=== PATIENT | female | born 1945 | race Caucasian/White ===

== ENCOUNTER 2021-11-11 12:47 | Emergency (ER) | payer BC ==
[~2021-11-11] VITALS: Ht 154.9 cm; Wt 59.0 kg
[2021-11-11 13:15] VITALS: BP_SYST 142
--- NOTE | 2021-11-11 13:15 | NUR ---
Placed in room 5 . Placed on hospital monitor, blood pressure machine and pulse oximeter. To gown for exam. Side rails up.
--- NOTE | 2021-11-11 13:20 | NUR ---
PT BIB DAUGHTER FROM [facility] FOR ABD PAIN RLQ X 1 WEEK, SHARP. PT STATES LAST BM WAS AT 0900 THIS AM AND "NORMAL". PT IS AMBULATORY, AAOX4, VSS
--- NOTE | 2021-11-11 13:45 | NUR ---
ER DR. BAILEY EXAMINING PT AT THE BEDSIDE
--- NOTE | 2021-11-11 13:55 | NUR ---
LAB AT THE BEDSIDE FOR BLOOD DRAW
[2021-11-11 14:25] LABS: BASOPHILS # (AUTO) 0.1 K/uL (0.0-0.2); BASOPHILS % (AUTO) 0.7 % (0.0-2.0); EOSINOPHILS % (AUTO) 0.1 % (0.0-4.0); HEMATOCRIT 38.5 % (36-48); LYMPHOCYTES # (AUTO) 0.9 K/uL (1.0-5.5); LYMPHOCYTES % (AUTO) 9.5 % (20.5-51.5); MEAN CORPUSCULAR VOLUME 105 fL (79.0-98.0); MONOCYTES # (AUTO) 0.4 K/uL (0.0-1.0); MONOCYTES % (AUTO) 4.1 % (1.7-9.3); NEUTROPHILS # (AUTO) 7.8 K/uL (1.8-7.7); NEUTROPHILS % (AUTO) 85.6 % (40.0-70.0); PLATELET COUNT (AUTO) 190 K/uL (130-430); RED BLOOD CELL COUNT(AUTO) 3.67 MIL/uL (4.2-6.2); RED CELL DISTRIBUTION WIDTH 13.1 % (9.0-15.0); WHITE BLOOD COUNT (AUTO) 9.1 K/uL (4.8-10.8)
[2021-11-11 15:03] LABS: ANION GAP 7 (5-15); CALCIUM 9.4 mg/dL (8.4-11.0); CHLORIDE 103 mmol/L (98-107); GLUCOSE 151 mg/dL (70-99); POTASSIUM 3.8 mmol/L (3.5-5.1)
[2021-11-11 15:04] LABS: ALANINE AMINOTRANSFERASE 18 U/L (12-78); ALBUMIN 3.8 g/dL (3.4-4.8); AMYLASE 44 U/L (0-100); ASPARTATE AMINOTRANSFERASE 26 U/L (10-37); C-REACTIVE PROTEIN QUANT < 0.2 mg/dL (0-0.5); CREATININE 0.87 mg/dL (0.55-1.30); LIPASE 300 U/L (73-393); TOTAL BILIRUBIN 0.8 mg/dL (0.0-1.0); UREA NITROGEN, BLOOD 13 mg/dL (8-21)
[2021-11-11] MEDS ORDERED: HYDR-3917 PO (16:03)
[2021-11-11] MEDS ORDERED: IBUP-1969 PO (16:07)
[2021-11-11 16:40] VITALS: BP_SYST 142
--- NOTE | 2021-11-11 16:42 | NUR ---
Patient given written and verbal discharge instructions and verbalizes understanding. ER MD discussed with patient the results and treatment provided. Patient in stable condition. ID arm band removed. Rx of NORCO AND IBUPROFEN given. Patient educated on pain management and to follow up with PMD. Pain Scale 0/10. Opportunity for questions provided and answered. Medication side effect fact sheet provided.
== END 2021-11-11 16:42 | disposition home or self-care (01) ==
LOC: SED 12:47
DX: R10.31 Right lower quadrant pain (principal)
CPT/HCPCS: 36415; 76376; 80053; 81002; 82150; 83605; 83690; 85025; 86140; 99284

== ENCOUNTER 2022-04-30 18:40 | Emergency (ER) | payer BC ==
[~2022-04-30] VITALS: Ht 162.6 cm; Wt 52.2 kg
[~2022-04-30 18:40] MED LIST: HYDR-3917 PO; IBUP-1969 PO
--- NOTE | 2022-04-30 19:33 | NUR ---
ER at bedside examining patient.
--- NOTE | 2022-04-30 19:46 | NUR ---
COVID AND FLU SAMPLE COLLECTED AND SENT TO LAB
--- NOTE | 2022-04-30 19:50 | NUR ---
Pt bib daughter from home, ambulated to bed 8. Pt A&Ox4, able to make needs known. Pt is a Pashto speaker, daughter at bedside to translate. Pt c/o cough x5 days. Daughter states pt took an at home covid test on and it came back negative. Pt states vomiting x 2days. Pt denies blood in vomit. Pt denies diarrhea. Pt states she has been taking Robutussin, DyQuil, and Nyquil for cough, last taken yesterday. Pt has a history of HTN, and Diabetes. Safety measures in place.
--- NOTE | 2022-04-30 20:00 | NUR ---
Patient given written and verbal discharge instructions and verbalizes understanding. ER Dr Wolfe discussed with patient the results and treatment provided. Patient in stable condition. ID arm band removed. Patient educated on pain management and to follow up with PMD. Opportunity for questions provided and answered. Medication side effect fact sheet provided.
[2022-04-30 20:07] LABS: BASOPHILS % (AUTO) 0.7 % (0.0-2.0); EOSINOPHILS # (AUTO) 0.1 K/uL (0.0-0.4); EOSINOPHILS % (AUTO) 1.3 % (0.0-4.0); HEMATOCRIT 38.4 % (36-48); HEMOGLOBIN 13.1 g/dL (12.0-16.0); LYMPHOCYTES % (AUTO) 35.4 % (20.5-51.5); MEAN CORPUSCULAR HEMOGLOBIN 36 pg (27-31); MEAN CORPUSCULAR HGB CONC 34 % (32-36); MEAN CORPUSCULAR VOLUME 105 fL (79.0-98.0); MONOCYTES # (AUTO) 0.5 K/uL (0.0-1.0); MONOCYTES % (AUTO) 8.5 % (1.7-9.3); NEUTROPHILS # (AUTO) 3.1 K/uL (1.8-7.7); NEUTROPHILS % (AUTO) 54.1 % (40.0-70.0); PLATELET COUNT (AUTO) 166 K/uL (130-430); RED BLOOD CELL COUNT(AUTO) 3.65 MIL/uL (4.2-6.2); RED CELL DISTRIBUTION WIDTH 12.9 % (9.0-15.0); WHITE BLOOD COUNT (AUTO) 5.6 K/uL (4.8-10.8)
[2022-04-30 20:38] LABS: PROTHROMBIN TIME 9.7 SECS (9.5-12.5)
[2022-04-30 20:44] LABS: ANION GAP 7 (5-15); CALCIUM 9.4 mg/dL (8.4-11.0); CHLORIDE 101 mmol/L (98-107); CREATININE 0.83 mg/dL (0.55-1.30); GLUCOSE 130 mg/dL (70-99); UREA NITROGEN, BLOOD 23 mg/dL (8-21)
--- NOTE | 2022-04-30 20:54 | NUR ---
Patient to ER bed 8 to gown for evaluation. Side rails up. Report given to ARMANDO OLMOS.
[2022-04-30 21:01] LABS: ALANINE AMINOTRANSFERASE 28 U/L (12-78); ALBUMIN 3.7 g/dL (3.4-4.8); ASPARTATE AMINOTRANSFERASE 25 U/L (10-37); TOTAL BILIRUBIN 0.5 mg/dL (0.0-1.0)
[2022-04-30] MEDS ORDERED: PSEU30TA36 PO (21:26)
[2022-04-30] MEDS ORDERED: ALBU2.5V7 INH (21:26)
[2022-04-30] MEDS ORDERED: ALBMDI INH (21:26)
[2022-04-30 22:51] VITALS: BP_SYST 134
== END 2022-04-30 20:00 | disposition home or self-care (01) ==
LOC: SED 18:40
DX: J40 Bronchitis, not specified as acute or chronic (principal); R05.9 Cough, unspecified; E78.5 Hyperlipidemia, unspecified; E11.9 Type 2 diabetes mellitus without complications; I10 Essential (primary) hypertension; Z79.899 Other long term (current) drug therapy; Z20.822 Contact with and (suspected) exposure to COVID-19
CPT/HCPCS: 36415; 71045; 80053; 82550; 83605; 83880; 84484; 84703; 85025; 85610-TC; 85730-TC; 93005; 99285

== ENCOUNTER 2023-09-20 16:46 | Emergency (ER) | payer BC ==
[~2023-09-20] VITALS: Ht 160 cm; Wt 65.8 kg
[~2023-09-20 16:46] MED LIST changes: +ALBMDI INH; +ALBU2.5V7 INH; +PSEU30TA36 PO
[2023-09-20 16:59] VITALS: BP_SYST 136; PULSE 74; RESP 15; TEMP 97.4; O2SAT 98
[2023-09-20] MEDS ORDERED: TRAM50TA2 PO (20:08)
[2023-09-20 20:10] VITALS: BP_SYST 136; PULSE 74; RESP 15; TEMP 97.4; O2SAT 98
== END 2023-09-20 20:10 | disposition home or self-care (01) ==
LOC: SED 16:46
DX: R60.0 Localized edema (principal); E11.9 Type 2 diabetes mellitus without complications; I10 Essential (primary) hypertension; E78.5 Hyperlipidemia, unspecified; Z79.899 Other long term (current) drug therapy; Z79.2 Long term (current) use of antibiotics
CPT/HCPCS: 93971; 99284